=== PATIENT | female | born 1985 | race Two or more races ===

== ENCOUNTER 2025-05-26 10:52 | Inpatient (IN) | payer OTHER ==
[~2025-05-26] VITALS: Ht 167.6 cm; Wt 100.0 kg
[2025-05-26 10:55] VITALS: PULSE 112; RESP 20; O2SAT 94
--- NOTE | 2025-05-26 11:09 | ED.PDOC ---
HPI (NEURO) HPI Comments 39-year-old female PMHx HTN presents to the ED via EMS with a chief complaint of seizure onset today (05/26/25). Patient has a new onset of seizures, was episode was 03/04/2025, second episode was today. Seizure was witnessed by co- worker, approximately 1 minute. Patient does not recall event, woke up, EMS was there. Has not been seen by Neurologist. Denies fever, chills, nausea, vomiting, chest pain, shortness of breath. No other symptoms or modifying factors present at this time. Chief Complaint: Seizure Time Seen by MD: 11:00 Reviewed Notes: Medications, Allergies Information Source: Patient, Emergency Med Personnel Mode of Arrival: EMS Severity: Moderate Timing: Hours Duration: Since onset Prehospital treatment: None Seizure Quality: Tonic-clonic Seizure Location: Generalized Onset: At rest Circumstances: Spontaneous Symptoms: None Before: Normal After: Normal Mentation Modifying factors: Nothing Past Medical History PAST MEDICAL HISTORY: HTN Surgical History: Denies all surgeries GAMBRELER History: No Pertinent GAMBRELER History Family History Family History: Reviewed,noncontributory to illness, No family hx of Cancer, No family hx of DM, No family hx of Heart lexie, No family hx of HTN, No family hx ofKidney lexie, No family hx of Liver lexie, No family hx of Lung lexie, No family hx of Stroke Social History Smoker: Non-Smoker Alcohol: Denies ETOH Use Drugs: Denies Drug Use Lives In: Home Constitutional: denies: chills, diaphoresis, fatigue, fever, malaise, sweats, weakness, others EENTM: denies: blurred vision, double vision, ear bleeding, ear discharge, ear drainage, ear pain, ear ringing, eye pain, eye redness, hearing loss, mouth pain, mouth swelling, nasal discharge, nose bleeding, nose congestion, nose pain, photophobia, tearing, throat pain, throat swelling, voice changes, others Respiratory: denies: cough, hemoptysis, orthopnea, SOB at rest, shortness of breath, SOB with excertion, stridor, wheezing, others Cardiovascular: denies: chest pain, dizzy spells, diaphoresis, Dyspnea on exertion, edema, irregular heart beat, left arm pain, lightheadedness, palpitations, PND, syncope, others Gastrointestinal: denies: abdomen distended, abdominal pain, blood streaked bowels, constipated, diarrhea, dysphagia, difficulty swallowing, hematemesis, melena, nausea, poor appetite, poor fluid intake, rectal bleeding, rectal pain, vomiting, others Genitourinary: denies: abnormal vagina bleeding, burning, dyspareunia, dysuria, flank pain, frequency, hematuria, incontinence, pain, , vagina discharge, urgency, others Neurological: reports: seizure; denies: dizziness, fainting, headache, left sided numbness, left sided weakness, numbness, paresthesia, pre-existing deficit, right sided numbness, right sided weakness, speech problems, tingling, tremors, weakness, others Musculoskeletal: denies: back pain, gout, joint pain, joint swelling, muscle pain, muscle stiffness, neck pain, others Integumetry: denies: bruises, change in color, change in hair/nails, dryness, laceration, lesions, lumps, rash, wounds, others Allergic/Immunocompromised: denies: Difficulty Healing, Frequent Infections, Hives, Itching, others Hematologic/Lymphatic: denies: anemia, blood clots, easy bleeding, easy bruising, swollen glands, others Endocrine: denies: excessive hunger, excessive sweating, excessive thirst, excessive urination, flushing, intolerance to cold, intolerance to heat, unexplained weight gain, unexplained weight loss, others Psychiatric: denies: anxiety, bipolar disorder, depression, hopeless, panic disorder, schizophrenia, sleepless, suicidal, others All Other Systems: Reviewed and Negative Physical Exam General Appearance: Normal HEENT: Normal ENT Inspection, Pharynx Normal, TMs Normal Neck: Full Range of Motion, Non-Tender, Normal, Normal Inspection Respiratory: Chest Non-Tender, Lungs Clear, No Accessory Muscle Use, No Respiratory Distress, Normal Breath Sounds Cardiovascular: No Edema, No JVD, No Murmur, No Gallop, Normal Peripheral Pulses, Regular Rate/Rhythm Breast Exam: Deferred Gastrointestinal: No Organomegaly, Non Tender, No Pulsatile Mass, Normal Bowel Sounds, Soft Genitalia: Deferred Pelvic: Deferred Rectal: Deferred Extremities: No calf tenderness, Normal capillary refill, Normal inspection, Normal range of motion, Non-tender, No pedal edema Musculoskeletal : Apperance: Normal Neurologic: Alert, collection advisor II-XII nml as Tested, No Motor Deficits, Normal Affect, Normal Mood, No Sensory Deficits Cerebellar Function: Normal Reflexes: Normal Skin: Dry, Normal Color, Warm Lymphatic: No Adenopathy Was a procedure done? Was a procedure done?: No Differential Diagnosis (SZ) Seizure: Syncope, Epilepsy-Break Through CVA: CVA General Weakness: Hypotension, Hypovolemia, TIA Headache: Migraine X-Ray, Labs, Meds, VS Vital Signs Date Time Temp Pulse Resp B/P (MAP) Pulse Ox O2 Delivery O2 Flow Rate FiO2 05/26/25 15:00 107 16 146/90 (108) 94 05/26/25 14:22 115 05/26/25 12:44 111 16 132/73 (92) 94 05/26/25 10:56 98.7 120 17 120/84 96 98.7 05/26/25 10:55 112 20 94 Room Air* 0 21 05/26/25 10:55 112 16 132/73 (92) 94 Lab Test 05/26/25 11:34 05/26/25 11:07 Range/Units White Blood Count 10.2 4.4-10.8 10^3/uL Red Blood Count 5.05 4.0-5.20 10^6/uL Hemoglobin 14.7 12.2-16.2 g/dL Hematocrit 43.5 36.0-46.0 % Mean Corpuscular Volume 86.2 80.0-100.0 fL Mean Corpuscular Hemoglobin 29.2 28.0-32.0 pg Mean Corpuscular Hemoglobin Concent 33.8 32.0-36.0 g/dL Red Cell Distribution Width 13.1 11.8-14.3 % Platelet Count 271 140-450 10^3/uL Mean Platelet Volume 7.8 6.9-10.8 fL Neutrophils (%) (Auto) 77.3 37.0-80.0 % Lymphocytes (%) (Auto) 14.8 10.0-50.0 % Monocytes (%) (Auto) 6.3 0.0-12.0 % Eosinophils (%) (Auto) 0.8 0.0-7.0 % Basophils (%) (Auto) 0.8 0.0-2.0 % Neutrophils # (Auto) 7.9 1.6-8.6 10 ^3/uL Lymphocytes # (Auto) 1.5 0.4-5.4 10 ^3/uL Monocytes # (Auto) 0.6 0-1.3 10 ^3/uL Eosinophils # (Auto) 0.1 0-0.8 10 ^3/uL Basophils # (Auto) 0.1 0-0.2 10 ^3/uL Nucleated Red Blood Cells 0.1 % Sodium Level 139 136-145 mmol/L Potassium Level 3.8 3.5-5.1 mmol/L Chloride Level 106 98-107 mmol/L Carbon Dioxide Level 23 20-31 mmol/L Anion Gap 10 5-15 Blood Urea Nitrogen < 5 L 9-23 mg/dL Creatinine 0.67 0.550-1.02 mg/dL Glomerular Filtration Rate Calc 115 >90 mL/min BUN/Creatinine Ratio 7.5 L 10.0-20.0 Serum Glucose 92 74-106 mg/dL Calcium Level 8.3 L 8.7-10.4 mg/dL Urine Color Light-yellow Yellow Urine Clarity Cloudy H Clear Urine pH 6.0 5.0-9.0 Urine Specific [place] 1.019 1.001-1.035 Urine Protein Trace H Negative Urine Ketones Negative Negative Urine Blood Trace H Negative /uL Urine Nitrite 2+ H Negative Urine Bilirubin Negative Negative Urine Urobilinogen Normal Negative mg/dL Urine Leukocyte Esterase 1+ Negative /uL Urine RBC 3 0 - 4 /hpf Urine Microscopic WBC 23 H 0-5 /HPF Urine Squamous Epithelial Cells Few <5 /hpf Urine Bacteria Few H None Seen /hpf Urine Mucus Few None Seen Urine Glucose Normal Normal mg/dL Urine Test Negative Negative Time of 1ST Reevaluation: 11:30 Reevaluation 1ST: Unchanged Patient Education/Counseling: Diagnosis, Treatment, Prognosis Family Education/Counseling: No Family Present Departure 1 Departure Time of Disposition: 15:18 (Patient with new onset seizure in complicated urinary tract infection. We will cover patient with antibiotics and Keppra and admit patient for further workup and expert consultation) Impression: Primary Impression: New onset seizure Additional Impression: Complicated UTI (urinary tract infection) Disposition: ADMITTED INPATIENT Admit to: Med Surg Condition: Guarded Critical Care Note Critical Care Time?: No Stability Stability form required: No Heart Score Heart Score: Heart Score Response (Comments) Value History N/A 0 EKG N/A 0 Age N/A 0 Risk Factors N/A 0 Troponin N/A 0 Total 0 I personally scribed for MORRISSEY,KYLIE B MD ([email or web address]) on 05/26/25 at 11:09. Electronically submitted by Carol Pabon ([email or web address]). KYLIE MORRISSEY MD May 26, 2025 11:09
[2025-05-26 11:49] LABS: Hematocrit 43.5 % (36.0-46.0); Hemoglobin 14.7 g/dL (12.2-16.2); Mean Corpuscular Hemoglobin 29.2 pg (28.0-32.0); Mean Corpuscular Volume 86.2 fL (80.0-100.0); Nucleated Red Blood Cells % 0.1 %
[2025-05-26 11:57] LABS: Chloride 106 mmol/L (98-107); Potassium 3.8 mmol/L (3.5-5.1); Sodium 139 mmol/L (136-145)
[2025-05-26 11:58] LABS: Anion Gap 10 (5-15); Carbon Dioxide 23 mmol/L (20-31)
[2025-05-26 11:59] LABS: Calcium 8.3 mg/dL (8.7-10.4)
[2025-05-26 12:03] LABS: BUN/Creatinine Ratio 7.5 (10.0-20.0); Blood Urea Nitrogen < 5 mg/dL (9-23); Glucose 92 mg/dL (74-106)
[2025-05-26 14:16] LABS: Urine Protein, UAD TRACE (Negative)
--- NOTE | 2025-05-26 14:18 | DVH ---
EXAM: CT HEAD WITHOUT CONTRAST INDICATION: new onset seizure TECHNIQUE: CT of the head without intravenous contrast. Radiation Dose Information: CT Dose: CTDI volume is 25 mGy. Dose-length product is 250 mGy*cm The dose indicators for CT are the volume Computed Tomography (CT) Dose Index (CTDIvol) and the Dose Length Product (DLP), and are measured in units of mGy and mGy-cm, respectively. These indicators are not patient dose, but values generated from the CT scanner acquisition factors. The report includes radiation exposure data for exposures received during this examination. COMPARISON: None FINDINGS: There is no evidence of acute intracranial hemorrhage, extra-axial collection, mass effect, midline s hift, herniation or hydrocephalus. The ventricles, sulci and cisterns are age appropriate. The nur-white differentiation is intact. Patchy periventricular and subcortical white matter hypoattenuation is nonspecific but may be related to small vessel ischemic disease. The visualized paranasal sinuses and mastoid air cells are clear. The surrounding soft tissues and osseous structures are unremarkable. IMPRESSION: No acute intracranial abnormality.
[2025-05-26] MEDS: SODIUM CHLORIDE 0.9% 1,000 ML IV ONE ×2 (15:39→16:45)
[2025-05-26] MEDS: levETIRAcetam 1000 mg/100ml 100 ML IV ONE (15:39)
[2025-05-26] MEDS ORDERED: LORazepam 2MG/ML-1ML VIAL IV PRN (16:45)
--- NOTE | 2025-05-26 17:13 | DVHHPRES ---
History of Present Illness Resident Creating Document: СВЕТЛАНА [place] RESIDENT History of Present Illness 39-year-old female with past medical history of hypertension, seizures in March but then complains of seizure episode when she was walking outside of her work, noticed by Vidhi, had tongue bite, now urinary and bladder incontinence, had postictal confusion, and weakness patient mentioned that she hit her head during the episode and started having headache In the last seizure episode in March, patient was given antiseizure medication by PCP but she did not took it. She did not see any neurologist. Patient is currently seen and examined in the ER, currently on room air, mentions headache which is 6/10 and weakness She denied any nausea, vomiting post fall She denied recent drug intoxication, smoking, marijuana, alcohol intake No family history of seizures No recent head injury pre-seizure Past medical history Hypertension Seizure Past surgical history Denied recent surgery social history Denied smoking, alcohol, marijuana and any other drug intake Medication history Hydrochlorothiazide Lisinopril Allergic history Penicillins Review of Systems Review of Systems As described in the HPI Allergies: Coded Allergies: Penicillins (Verified Allergy, Unknown, 05/26/25) Medications Current Medications Medications Dose Ordered Sig/Kimmy Route Start Time Stop Time Status Last Admin Dose Admin Lorazepam 1 mg Q5MINP PRN IV 05/26/25 16:45 UNV Levetiracetam 100 ml @ 400 mls/hr BID IV 05/26/25 22:00 UNV Exam Vital Signs Vital Signs Date Time Temp Pulse Resp B/P (MAP) Pulse Ox O2 Delivery O2 Flow Rate FiO2 05/26/25 15:00 107 16 146/90 (108) 94 05/26/25 10:56 98.7 98.7 05/26/25 10:55 Room Air* 0 21 Exam Physical exam General : alert and oriented X 4 Cardio : normal S1 and S2 Resp : normal breath sounds Gi : soft Neuro cranial N : grossly normal cerebellar : grossly normal motor and sensory : grossly normal Labs/Xrays Labs Test 05/26/25 15:59 05/26/25 11:34 05/26/25 11:07 Range/Units Lactic Acid Level 0.9 0.4-2.0 mmol/L White Blood Count 10.2 4.4-10.8 10^3/uL Red Blood Count 5.05 4.0-5.20 10^6/uL Hemoglobin 14.7 12.2-16.2 g/dL Hematocrit 43.5 36.0-46.0 % Mean Corpuscular Volume 86.2 80.0-100.0 fL Mean Corpuscular Hemoglobin 29.2 28.0-32.0 pg Mean Corpuscular Hemoglobin Concent 33.8 32.0-36.0 g/dL Red Cell Distribution Width 13.1 11.8-14.3 % Platelet Count 271 140-450 10^3/uL Mean Platelet Volume 7.8 6.9-10.8 fL Neutrophils (%) (Auto) 77.3 37.0-80.0 % Lymphocytes (%) (Auto) 14.8 10.0-50.0 % Monocytes (%) (Auto) 6.3 0.0-12.0 % Eosinophils (%) (Auto) 0.8 0.0-7.0 % Basophils (%) (Auto) 0.8 0.0-2.0 % Neutrophils # (Auto) 7.9 1.6-8.6 10 ^3/uL Lymphocytes # (Auto) 1.5 0.4-5.4 10 ^3/uL Monocytes # (Auto) 0.6 0-1.3 10 ^3/uL Eosinophils # (Auto) 0.1 0-0.8 10 ^3/uL Basophils # (Auto) 0.1 0-0.2 10 ^3/uL Nucleated Red Blood Cells 0.1 % Sodium Level 139 136-145 mmol/L Potassium Level 3.8 3.5-5.1 mmol/L Chloride Level 106 98-107 mmol/L Carbon Dioxide Level 23 20-31 mmol/L Anion Gap 10 5-15 Blood Urea Nitrogen < 5 L 9-23 mg/dL Creatinine 0.67 0.550-1.02 mg/dL Glomerular Filtration Rate Calc 115 >90 mL/min BUN/Creatinine Ratio 7.5 L 10.0-20.0 Serum Glucose 92 74-106 mg/dL Calcium Level 8.3 L 8.7-10.4 mg/dL Urine Color Light-yellow Yellow Urine Clarity Cloudy H Clear Urine pH 6.0 5.0-9.0 Urine Specific [place] 1.019 1.001-1.035 Urine Protein Trace H Negative Urine Ketones Negative Negative Urine Blood Trace H Negative /uL Urine Nitrite 2+ H Negative Urine Bilirubin Negative Negative Urine Urobilinogen Normal Negative mg/dL Urine Leukocyte Esterase 1+ Negative /uL Urine RBC 3 0 - 4 /hpf Urine Microscopic WBC 23 H 0-5 /HPF Urine Squamous Epithelial Cells Few <5 /hpf Urine Bacteria Few H None Seen /hpf Urine Mucus Few None Seen Urine Glucose Normal Normal mg/dL Urine Test Negative Negative SEPSIS Sepsis Screen Date sepsis recognized/suspect: May 26, 2025 Time Sepsis recognized/suspect: 1055 Recent Procedure: No On Antibiotic Therapy: No Respiratory Rate >20: No Heart Rate >90: Yes Temp<36 C (96.8 F) or >38.3 C: No SBP <90 or MAP <65 mmHG: No New Acute Mental Status Change: No Is the patient on CPAP, BIPAP,: No Physician Orders Head Without Contrast (05/26/25 13:41) Blood Culture (05/26/25 15:16) Electrocardigram (05/26/25 16:19) Admit (05/26/25 16:41) Oxygen By Nasal Cannula (05/26/25 16:41) Stat Ekg For Chest Pain (05/26/25 16:41) Notify Md Of Changes From Base (05/26/25 16:41) Delivery Technician For 24 Hours (05/26/25 16:41) Emergency Dysrhythmia Protocol (05/26/25 16:41) Rhythm Strips Once Every Shift (05/26/25 16:41) Lorazepam 2mg/Ml Inj (Ativan Inj) (05/26/25 16:45) Levetiracetam Ivpb Keppra (05/26/25 22:00) Troponin-I Hs (05/26/25 16:41) B-Type Natriuretic Peptide (05/26/25 16:41) Prolactin (05/26/25 16:41) Creatine Kinase (05/26/25 16:41) Lactic Acid W/ Reflex Order (05/26/25 16:41) * Neurology Consult (05/26/25 16:41) Drug Screen (05/26/25 16:41) Urine Bacterial Culture (05/26/25 16:41) Blood Culture (05/26/25 16:41) NS (05/26/25 16:45) Magnesium (05/26/25 16:41) Phosphorus (05/26/25 16:41) Regular Diet (05/26/25 Dinner) Vital Signs Date Time Temp Pulse Resp B/P (MAP) Pulse Ox O2 Delivery O2 Flow Rate FiO2 05/26/25 15:00 107 16 146/90 (108) 94 05/26/25 14:22 115 05/26/25 12:44 111 16 132/73 (92) 94 05/26/25 10:56 98.7 120 17 120/84 96 98.7 05/26/25 10:55 112 20 94 Room Air* 0 21 05/26/25 10:55 112 16 132/73 (92) 94 Laboratory Tests Test 05/26/25 11:34 05/26/25 15:59 White Blood Count 10.2 10^3/uL (4.4-10.8) Lactic Acid Level 0.9 mmol/L (0.4-2.0) Medications Medications Dose Ordered Sig/Kimmy Route Start Time Stop Time Status Last Admin Dose Admin Ceftriaxone Sodium 50 ml @ 100 mls/hr ONCE ONCE IV 05/26/25 15:30 05/26/25 15:59 DC 05/26/25 15:55 100 MLS/HR Levetiracetam 100 ml @ 400 mls/hr ONCE ONCE IV 05/26/25 15:30 05/26/25 15:44 DC 05/26/25 15:39 400 MLS/HR Sodium Chloride 1,000 ml @ 1,000 mls/hr Q1H ONCE IV 05/26/25 15:30 05/26/25 16:29 DC 05/26/25 15:39 1,000 MLS/HR Assessment/Plan Assessment/Plan Assessment and plan # Breakthrough seizure -IV kepra and ativan PRN -Head CT -neurology consultation -uds # Complicated UTI -IV ceftriaxone urine culture IV fluids # Hypertension -will resume home meds DVT prophylaxis : will start lovenox Code status discussed with the patient for > 21 min : FULL CODE Case discussion with Dr Willingham. Plan discussed with: Patient, Other My Orders Orders - СВЕТЛАНА [place] RESIDENT Procedure Category Date Status Time Electrocardigram EKG 05/26/25 Logged 16:19 Admit ADMIT 05/26/25 Transmitted 16:41 Oxygen By Nasal RT 05/26/25 Transmitted Cannula 16:41 Stat Ekg For Chest RHONDA 05/26/25 In Process Pain 16:41 Notify Of Changes [facility] 05/26/25 In Process From Base 16:41 Delivery Technician For [facility] 05/26/25 In Process 24 Hours 16:41 Emergency Dysrhythmia [facility] 05/26/25 In Process Protocol 16:41 Rhythm Strips Once [facility] 05/26/25 In Process Every Shift 16:41 Lorazepam 2mg/Ml Inj PHA 05/26/25 Logged (Ativan Inj) 16:45 Levetiracetam Ivpb PHA 05/26/25 Transmitted Keppra 22:00 Troponin-I Hs LAB 05/26/25 Logged 16:41 B-Type Natriuretic LAB 05/26/25 Logged Peptide 16:41 Prolactin LAB 05/26/25 Logged 16:41 Creatine Kinase LAB 05/26/25 Logged 16:41 Lactic Acid W/ Reflex LAB 05/26/25 Logged Order 16:41 * Neurology Consult CONS 05/26/25 Transmitted 16:41 Drug Screen LAB 05/26/25 Logged 16:41 Urine Bacterial LICO 05/26/25 Logged Culture 16:41 Blood Culture LICO 05/26/25 Logged 16:41 NS PHA 05/26/25 Transmitted 16:45 Magnesium LAB 05/26/25 Logged 16:41 Phosphorus LAB 05/26/25 Logged 16:41 Regular Diet DIET 05/26/25 Transmitted Dinner Date of Service: May 26, 2025 Billing Provider: ADEBAYO WILLINGHAM MD Common Visit Codes: [id number] INP/OBS CARE (HIGH) СВЕТЛАНА [place] RESIDENT May 26, 2025 17:13 ADEBAYO WILLINGHAM MD May 29, 2025 13:31
[2025-05-26] MEDS: ACETAMINOPHEN 325 MG TAB PO PRN (17:53)
--- NOTE | 2025-05-26 18:11 | DVH ---
CHEST RADIOGRAPH REASON FOR EXAM: seizures COMPARISON: None TECHNIQUE: One view of the chest is provided FINDINGS: The cardiomediastinal silhouette is within normal limits for technique. Evaluation is subo ptimal due to patient body habitus. There are low inspiratory volumes causing exaggeration and crowdi ng of the pulmonary markings. There is no definite airspace disease. There is no significant pleural effusion. No acute bony abnormality is identified. IMPRESSION: Low inspiratory volumes. No definite airspace disease.
[2025-05-26 18:12] LABS: Magnesium 2.2 mg/dL (1.6-2.6)
[2025-05-26 18:14] LABS: Creatine Kinase IFCC 162.0 U/L (34-145)
[2025-05-26 18:24] LABS: COVID19 ANTIGEN SOFIA FIA NEGATIVE (NEGATIVE)
[2025-05-26 18:59] LABS: Opiate Scree,Urine Neg (NEGATIVE); Phencyclidine Screen, Urine Neg (NEGATIVE)
[2025-05-26 19:06] LABS: Amphetamine Screen, Urine Neg (NEGATIVE); Barbiturate Scree,Urine Neg (NEGATIVE); Benzodiazephine Screen, Urine Neg (NEGATIVE); Cannabinoid Screen, Urine Neg (NEGATIVE); Cocaine Screen, Urine Neg (NEGATIVE)
[2025-05-26 21:37] VITALS: PULSE 91; RESP 16; O2SAT 95
[2025-05-26 22:26] VITALS: PULSE 91; RESP 16; O2SAT 95
[2025-05-26] MEDS ORDERED: LISI-285 PO (22:36)
[2025-05-26] MEDS ORDERED: TIRZ2.5I2 (22:36)
[2025-05-26] MEDS: levETIRAcetam 500 mg/100ml 100 ML IV SCH (22:37)
[2025-05-26 23:00] VITALS: BP 137/82; PULSE 91; RESP 16; TEMP 98.5; O2SAT 95
[2025-05-27 01:00] VITALS: BP 140/82; PULSE 88; RESP 18; TEMP 98.2; O2SAT 100
[2025-05-27 05:00] VITALS: BP 136/80; PULSE 84; RESP 18; TEMP 98.1; O2SAT 99
[2025-05-27 06:28] LABS: Hematocrit 40.4 % (36.0-46.0); Hemoglobin 13.8 g/dL (12.2-16.2); Mean Corpuscular Hemoglobin 29.1 pg (28.0-32.0); Mean Corpuscular Volume 85.5 fL (80.0-100.0); Nucleated Red Blood Cells % 0.2 %
[2025-05-27 06:45] LABS: Alanine Aminotransferase 22 U/L (7-40); Albumin 3.9 g/dL (3.2-4.8); Alkaline Phosphatase 111 U/L (46-116); Anion Gap 10 (5-15); Carbon Dioxide 25 mmol/L (20-31); Chloride 106 mmol/L (98-107); Glucose 85 mg/dL (74-106); Magnesium 2.1 mg/dL (1.6-2.6); Potassium 3.7 mmol/L (3.5-5.1); Sodium 141 mmol/L (136-145); Total Protein 6.6 g/dL (5.7-8.2)
[2025-05-27 06:46] LABS: Bilirubin, Total 0.5 mg/dL (0.2-1.0)
[2025-05-27 06:49] LABS: BUN/Creatinine Ratio 8.3 (10.0-20.0); Blood Urea Nitrogen < 5 mg/dL (9-23); Calcium 8.6 mg/dL (8.7-10.4)
[2025-05-27 08:00] VITALS: PULSE 69; PULSE 83; RESP 15; O2SAT 96
[2025-05-27 08:49] VITALS: BP 94/58; PULSE 69; RESP 15; TEMP 98.2; O2SAT 96
[2025-05-27] MEDS ORDERED: PATIENTS OWN MEDICATION (Lisinopril & Hydrochlorothiazi (Lisinopril/Hydrochlorothi) 1 TAB) PO SCH (10:00)
[2025-05-27] MEDS: ENOXAPARIN SOD 40 MG/0.4 ML SYRINGE SC SCH (10:17)
[2025-05-27] MEDS: LISINOPRIL 20 MG TAB PO SCH (10:22)
[2025-05-27] MEDS: hydroCHLOROthiazide 25 MG TAB PO SCH (10:22)
[2025-05-27] MEDS ORDERED: IBUPROFEN 600 MG TAB PO PRN (10:30)
[2025-05-27 13:00] VITALS: BP 122/78; PULSE 85; RESP 18; TEMP 98.1; O2SAT 97
[2025-05-27] MEDS ORDERED: KEP500T PO (15:03)
[2025-05-27] MEDS ORDERED: CEPH250C PO (15:03)
--- NOTE | 2025-05-27 18:34 | DVHDSRES ---
Discharge Summary Date of Admission Resident Creating Document: NARDA SULLIVAN RESIDENT May 26, 2025 at 16:41 Date of Discharge: May 27, 2025 Admitting Diagnosis Breakthrough seizure Labs/Diagnostic Data: Laboratory Results Test 05/27/25 05:41 05/26/25 17:31 05/26/25 17:00 05/26/25 15:59 White Blood Count 10.3 10^3/uL (4.4-10.8) Red Blood Count 4.73 10^6/uL (4.0-5.20) Hemoglobin 13.8 g/dL (12.2-16.2) Hematocrit 40.4 % (36.0-46.0) Mean Corpuscular Volume 85.5 fL (80.0-100.0) Mean Corpuscular Hemoglobin 29.1 pg (28.0-32.0) Mean Corpuscular Hemoglobin Concent 34.1 g/dL (32.0-36.0) Red Cell Distribution Width 13.0 % (11.8-14.3) Platelet Count 270 10^3/uL (140-450) Mean Platelet Volume 8.4 fL (6.9-10.8) Neutrophils (%) (Auto) 66.2 % (37.0-80.0) Lymphocytes (%) (Auto) 24.8 % (10.0-50.0) Monocytes (%) (Auto) 7.9 % (0.0-12.0) Eosinophils (%) (Auto) 0.8 % (0.0-7.0) Basophils (%) (Auto) 0.3 % (0.0-2.0) Neutrophils # (Auto) 6.8 10 ^3/uL (1.6-8.6) Lymphocytes # (Auto) 2.5 10 ^3/uL (0.4-5.4) Monocytes # (Auto) 0.8 10 ^3/uL (0-1.3) Eosinophils # (Auto) 0.1 10 ^3/uL (0-0.8) Basophils # (Auto) 0 10 ^3/uL (0-0.2) Nucleated Red Blood Cells 0.2 % Sodium Level 141 mmol/L (136-145) Potassium Level 3.7 mmol/L (3.5-5.1) Chloride Level 106 mmol/L (98-107) Carbon Dioxide Level 25 mmol/L (20-31) Anion Gap 10 (5-15) Blood Urea Nitrogen < 5 mg/dL (9-23) Creatinine 0.60 mg/dL (0.550-1.02) Glomerular Filtration Rate Calc 118 mL/min (>90) BUN/Creatinine Ratio 8.3 (10.0-20.0) Serum Glucose 85 mg/dL (74-106) Calcium Level 8.6 mg/dL (8.7-10.4) Magnesium Level 2.1 mg/dL (1.6-2.6) Total Bilirubin 0.5 mg/dL (0.2-1.0) Aspartate Amino Transferase (AST) 20 U/L (13-40) Alanine Aminotransferase (ALT) 22 U/L (7-40) Alkaline Phosphatase 111 U/L (46-116) Total Protein 6.6 g/dL (5.7-8.2) Albumin 3.9 g/dL (3.2-4.8) Phosphorus Level 2.9 mg/dL (2.4-5.1) Creatine Kinase 162 U/L (34-145) Troponin I High Sensitivity 4 ng/L (</=34) Prolactin 13.48 ng/mL (2.8-29.2) Influenza Type A Antigen Negative (Negative) Influenza Type B Antigen Negative (Negative) SARS-CoV-2 Antigen (Rapid) Negative (NEGATIVE) Lactic Acid Level 0.9 mmol/L (0.4-2.0) Test 05/26/25 11:32 05/26/25 11:07 B-Type Natriuretic Peptide 17.65 pg/mL (0-100) Urine Color Light-yellow (Yellow) Urine Clarity Cloudy (Clear) Urine pH 6.0 (5.0-9.0) Urine Specific [employer] 1.019 (1.001-1.035) Urine Protein Trace (Negative) Urine Ketones Negative (Negative) Urine Blood Trace /uL (Negative) Urine Nitrite 2+ (Negative) Urine Bilirubin Negative (Negative) Urine Urobilinogen Normal mg/dL (Negative) Urine Leukocyte Esterase 1+ /uL (Negative) Urine RBC 3 /hpf (0 - 4) Urine Microscopic WBC 23 /HPF (0-5) Urine Squamous Epithelial Cells Few /hpf (<5) Urine Bacteria Few /hpf (None Seen) Urine Mucus Few (None Seen) Urine Glucose Normal mg/dL (Normal) Urine Test Negative (Negative) Urine Opiates Screen Neg (NEGATIVE) Urine Fentanyl Screen Neg (NEGATIVE) Urine Barbiturates Screen Neg (NEGATIVE) Urine Phencyclidine Screen Neg (NEGATIVE) Urine Amphetamines Screen Neg (NEGATIVE) Urine Benzodiazepines Screen Neg (NEGATIVE) Urine Cocaine Screen Neg (NEGATIVE) Urine Cannabinoids Screen Neg (NEGATIVE) Other Laboratory Tests 05/27/25 05:41 Brief Hx & Hospital Course: 39-year-old female with past medical history of hypertension on lisinopril and hydrochlorothiazide, seizure in March came in with the complaints of a seizure episode after work. Patient reports that she had just finished driving and gotten out of her car when she had the seizure activity that her friend / co- worker noticed which was tonic-clonic, associated with tongue biting and bladder incontinence, postictal confusion and weakness. Patient reports she hit her head when she had the episode. On inquiry patient had a similar episode in March and she had gone to the hospital then but they had thought it was a due to heat wave. Patient met her primary care physician had referred her neurologist but patient reports she never went to the neurologist.n She denied any nausea, vomiting post fall. She denied recent drug intoxication, smoking, marijuana, alcohol intake No family history of seizures. No recent head injury pre-seizure Past medical history: Hypertension, Seizure Past surgical history: Denied recent surgery social history: Denied smoking, alcohol, marijuana and any other drug intake Medication history: Hydrochlorothiazide, Lisinopril Allergic history: Penicillins Brief history of hospitalization: patient came with a chief complaint of tonic- clonic seizure and was given IV levetiracetam lorazepam 1 mg. Since she had a fall and hit her head we did a CT scan which showed no intracranial abnormality. UDS came back negative and patient was given acetaminophen for headache. A neurology consult was placed. Patient also complained of increased urinary frequency and urine reports showed WBC 23, bacteria few, leukocyte esterase 1+, RBC 3, nitrate 2+, protein trace, blood trace. He has we gave her IV ceftriaxone 1 g scheduled and sent a urine culture which was pending. We also gave IV fluid normal saline 0.9%. For hypertension we continued home meds lisinopril 20 mg and hydrochlorothiazide 5 mg and during hospitalization we also gave her DVT prophylaxis Lovenox 40 mg subcutaneous. Patient since admission has been stable, we were awaiting Neurology consult but the patient reported that she wanted to go home against medical advice. Patient was counseled regarding the need for neurology consult multiple times in the need for continued care but patient stated understanding but still wanted to leave. We have asked her to continue Keppra and cephalexin, meter primary care physician and neurologist and to come back if any other symptoms and difficulties arise. Operations or Procedures EXAM: CT HEAD WITHOUT CONTRAST INDICATION: new onset seizure IMPRESSION: No acute intracranial abnormality. ORDERING PHYSICIAN: СВЕТЛАНА HOUSTON PROCEDURE(s): CXRP - CHEST PORTABLE REASON: seizures IMPRESSION: Low inspiratory volumes. No definite airspace disease. Condition at Discharge: Undetermined Final Diagnosis/Problems List # Breakthrough tonic clonic seizure # acute cystitis # ruled out complicated UTI # Hypertension Discharge Disposition: AMA Discharge Instruct/Medications Scheduled Cephalexin (Keflex Capsule), 1 CAP PO QID Levetiracetam (Keppra Tablet), 500 MG PO BID Lisinopril & Hydrochlorothiazi (Lisinopril/Hydrochlorothi), 1 TAB PO DAILY, (Reported) Miscellaneous Medications Tirzepatide (Zepbound), (Reported) Discharge Statement: "Patient was advised to return to the ER or call 911 if any headaches, dizziness, shortness of breath, chest pain, abdominal pain, bleeding, fevers, or worsening of medical condition. Patient was counseled about treatment plan, medications, possible side effects, patientverbalized understanding. All questions were answered to the best of my ability. This discharge took greater then 30 minutes in planning, reviewing documentation, counseling the patient, and discussing with other team members." ASSESSMENT ASSESSMENT Assessment Date of Service: May 27, 2025 Billing Provider: ADEBAYO WILLINGHAM MD Common Visit Codes: 15721-DEH/OBS DISCH DAY >30min NARDA SULLIVAN May 27, 2025 18:34 ADEBAYO WILLINGHAM MD May 29, 2025 13:50
== END 2025-05-27 15:35 | disposition left against medical advice (07) | DRG 463 ==
LOC: ER 10:52 → EDBD 10:52 → OVERFLOW 16:41 → TELE-WESTW 22:09
PROVIDERS: ADMIT Student in an Organized Health Care Education/Training Program; ATTEND Student in an Organized Health Care Education/Training Program
DX: N30.00 Acute cystitis without hematuria (principal); G40.409 Other generalized epilepsy and epileptic syndromes, not intractable, without status epilepticus; I10 Essential (primary) hypertension; Z20.822 Contact with and (suspected) exposure to COVID-19; Z53.29 Procedure and treatment not carried out because of patient's decision for other reasons; Z88.0 Allergy status to penicillin
CPT/HCPCS: 36415; 70450; 71045; 80048; 80053; 80307; 81001; 81025; 82550; 83605; 83735; 83880; 84100; 84146; 84484; 85025; 87040; 87086; 87426; 87804; 96365; G0378